=== PATIENT | female | born 1950 | race Caucasian/White ===

== ENCOUNTER 2024-03-07 09:54 | Day surgery (SDC) | payer MEDICARE, OTHER, SELFPAY ==
[2024-03-07] VITALS (9 sets, daily range): BP systolic 119–147; BP diastolic 54–105
--- NOTE | 2024-03-07 11:48 | ITS.CL.CATH ---
[facility] - Catheterization
Cardiac Catheterization
Procedure Report:
CARDIAC CATHETERIZATION REPORT
Date of Procedure: 03/07/2024
Referring: Migue Vazquez MD
Indication: Significant and unexplained exertional dyspnea
�
HEMODYNAMIC DATA
AO: 146/85
LV: 146/20
PCWP: 26
PA: 64/30
RV: 64/22
RA: 20
Oximetry: Ao 92%, PA 66%, cardiac output 5.4, cardiac index 2.5
�
LEFT VENTRICULOGRAPHY: Hyperdynamic left ventricular wall motion with EF visually estimated at 70%
�
CORONARY ANGIOGRAPHY
Dominance: Right
Left Main: Normal
LAD: Trivial luminal irregularities
Circumflex: Normal
RCA: Normal
�
Closure Device: None-the procedure was performed via the right radial artery
�
Radiation dose (mGy): 410
DAP (cm2.Gy): 34
Fluoroscopy time: 5.3 minutes
�
CONCLUSIONS:
1. Systemic hypertension
2. Elevated left and right heart filling pressures with moderate pulmonary hypertension
3. No significant CAD
4. Hyperdynamic left ventricular wall motion with EF 70%
�
RECOMMENDATIONS: Pulmonary hypertension likely representing diastolic dysfunction. We will increase furosemide to 20 mg twice daily and add KCl 10 mill equivalents twice daily. Home blood pressure monitoring is recommended. I told her that
dietary sodium must be decreased and weight reduction will absolutely help improve her symptoms
�
Copy to: Migue Vazquez MD, Wendy Heller,
�
Rohit Lopez MD, [facility], [facility]
== END 2024-03-07 15:15 | disposition home or self-care (01) ==
LOC: CATH 09:54
PROVIDERS: ATTENDING PHYSICIAN Internal Medicine Cardiovascular Disease; FAMILY PHYSICIAN Internal Medicine; OTHER PHYSICIAN Internal Medicine Cardiovascular Disease
DX: I27.20 Pulmonary hypertension, unspecified (principal); R06.09 Other forms of dyspnea; I10 Essential (primary) hypertension; Z79.82 Long term (current) use of aspirin; Z79.899 Other long term (current) drug therapy
CPT/HCPCS: 93005; 93460; C1894; Q9967